=== PATIENT | female | born 1935 | race Caucasian/White ===

== ENCOUNTER → 2016-11-02 | Outpatient (CLI) | payer MEDICARE ==
[2015-08-18 12:16] VITALS: BP 199/91
[~2016-11-02] MED LIST: SULF1TAB24 PO
--- NOTE | 2016-11-02 12:06 | RAD ---
CT head without contrast 11/02/2016 at 1141 hours Indication: Headache status post fall. Comparison: None available Technique: Multiple axial CT images of the head were obtained from skull base to the vertex without intravenous contrast. Findings: Ventricles, sulci and basal cisterns are within normal limits. Low-attenuation in the periventricular white matter suggestive of chronic small vessel ischemic changes. There is no mass, mass effect or midline shift. There is no acute intracranial hemorrhage. No loss of the kraft-white matter differentiation. Vascular catheter stations are noted involving the cavernous segments of the internal carotid arteries and vertebral arteries. Suspect bilateral lens replacement. Paranasal sinuses and mastoid air cells are well aerated. No definite calvarial fracture is identified. Impression: No acute intracranial hemorrhage. PQRS Compliance Statement: One or more of the following individualized dose reduction techniques were utilized for this examination: 1. Automated exposure control 2. Adjustment of the mA and/or kV according to patient size 3. Use of iterative reconstruction technique
== END | disposition home or self-care (01) ==
LOC: CT 11:24
PROVIDERS: ATTEND Nurse Practitioner Family
DX: S09.90XD Unspecified injury of head, subsequent encounter (principal); R42 Dizziness and giddiness; W19.XXXD Unspecified fall, subsequent encounter; Z91.81 History of falling
CPT/HCPCS: 70450

== ENCOUNTER → 2018-06-02 | Outpatient (CLI) | payer MEDICARE ==
[2015-08-18 12:16] VITALS: BP 199/91
[~2018-06-02] MED LIST changes: +IOHEXOL 240 MG/ML 50ML VIAL. PO ONE
--- NOTE | 2018-06-02 12:46 | KCIC ---
PQRS Compliance Statement: One or more of the following individualized dose reduction techniques were utilized for this examination: 1. Automated exposure control 2. Adjustment of the mA and/or kV according to patient size 3. Use of iterative reconstruction technique CT abdomen/pelvis without contrast 06/02/2018 10:30 AM INDICATION: Abdominal and pelvic pain for 4 weeks COMPARISON: None available TECHNIQUE: Multiple axial CT images of the abdomen and pelvis were obtained without intravenous contrast. Coronal and sagittal reformats are provided. FINDINGS: Lung bases are clear. Heart size is within normal limits. Evaluation of the solid abdominal viscera is limited by lack of intravenous contrast. Liver, spleen, bilateral adrenal glands and pancreas are normal in appearance. Calcified gallstone is identified within the neck of the gallbladder measuring 1.5 cm. Abdominal aorta is normal in caliber with mild calcified atheromatous plaque. There are no pathologically enlarged lymph nodes in the abdomen and pelvis. There is no free fluid or free intraperitoneal air. Oral contrast was administered. Opacified bowel loops demonstrate normal mucosal fold pattern. Small and large bowel are normal in caliber. There is no evidence for bowel obstruction. There are no pericolonic inflammatory changes. Appendix is not visualized. No pericecal inflammatory changes are identified. The kidneys are relatively symmetric in appearance. There is no suspicious renal mass within the limitations of a noncontrast examination. There is no hydronephrosis. There are no calculi within the kidneys, ureters or urinary bladder. Uterus and adnexa are normal by CT. Urinary bladder is within normal limits given degree of distention. No suspicious osseous abnormality is identified. IMPRESSION: No acute abnormality is identified within the abdomen and pelvis. Cholelithiasis without adjacent inflammatory changes. Further evaluation with ultrasound may be of benefit if clinically warranted. Electronically signed by: Emma Shirley MD (06/02/2018 12:43 PM) [id number]
== END | disposition home or self-care (01) ==
LOC: KCIC CT 09:24
PROVIDERS: ATTEND Family Medicine
DX: K80.20 Calculus of gallbladder without cholecystitis without obstruction (principal); I70.0 Atherosclerosis of aorta; I10 Essential (primary) hypertension
CPT/HCPCS: 74176; Q9966

== ENCOUNTER → 2021-06-15 | Outpatient (CLI) | payer MEDICARE ==
[2015-08-18 12:16] VITALS: BP 199/91
[~2021-06-15] MED LIST changes: -IOHEXOL 240 MG/ML 50ML VIAL. PO ONE
--- NOTE | 2021-06-16 09:02 | KCIC ---
EXAM: MRI right KNEE DATE: 06/15/2021 1:15 PM CLINICAL INDICATION: Reason: RIGHT KNEE PAIN / Spl. Instructions: / History: Rt knee pain and instab ility. Noticable change in joint alignment per pt. COMPARISON: None. TECHNIQUE: Multiplanar, multisequence MRI of the right knee was performed without contrast. FINDINGS: ACL and PCL are intact. MCL, fibular collateral ligament, biceps femoris and IT band are intact. Popl iteus is normal in signal and morphology, intact. Extensor mechanism is intact. Neutral patellar tracking. Small knee joint effusion. Small Diaz's cyst. Medial meniscus: Free edge blunting body-posterior horn medial meniscus with about 5 mm extrusion of the body segment. Lateral meniscus: Intact Mild soft tissue edema about the right knee. Chondral effacement medial patellofemoral compartment wi th subchondral edema and cystic change in the patella. There is also chondral effacement of the media l femoral condyle and medial tibial plateau with cystic change in the tibia. Prominent medial compart ment and patellofemoral compartment proliferative changes are seen. No acute fracture or osteonecrosis. IMPRESSION: 1. Severe right knee joint osteoarthritis with chondral effacement, subchondral cystic change and ma rrow edema greatest in the medial and patellofemoral compartments. 2. Medial meniscal free edge fraying/radial tear with extrusion of the body segment, favored to be d egenerative. 3. No acute fracture or osteonecrosis. 4. Small knee joint effusion. Electronically signed by: Jim Fragoso MD (06/16/2021 9:00 AM) [id number]
== END ==
LOC: KCIC MRI 12:43
PROVIDERS: ATTEND Family Medicine
DX: S83.241A Other tear of medial meniscus, current injury, right knee, initial encounter (principal); M17.11 Unilateral primary osteoarthritis, right knee; M25.461 Effusion, right knee; M71.21 Synovial cyst of popliteal space [Baker], right knee; M25.361 Other instability, right knee; X58.XXXA Exposure to other specified factors, initial encounter; Y93.89 Activity, other specified; Y92.89 Other specified places as the place of occurrence of the external cause; Y99.8 Other external cause status
CPT/HCPCS: 73721